=== PATIENT | male | born 1995 | race Caucasian/White ===

== ENCOUNTER 2019-12-07 14:20 | Emergency (ER) | payer BC ==
[2019-12-07] MEDS ORDERED: Amoxicillin 500 MG Cap PO ONE (14:42)
--- NOTE | 2019-12-07 14:47 | EDM.PDOC ---
ED HPI GENERAL MEDICAL PROBLEM - General Chief Complaint: ENT Problem Stated Complaint: SORE THROAT Time Seen by Provider: 12/07/19 14:35 - History of Present Illness INITIAL COMMENTS - FREE TEXT/NARRATIVE: 24-year-old male presents the emergency room with a sore throat. This started about 5 6 days ago. He was seen at the walk-in clinic on of this last week and had a negative rapid strep. But the patient was somewhat concerned about the sloppiness in which the sample was obtained. They discussed checking a mono but the results took too long to get back according to the provider as the patient recalls. Patient is not aware of any definitive fevers he does not have a thermometer at home however he has been sweaty and clammy at nights at times. Over the last 24 hours patient broke out in a rash worse over his right anterior thigh. But it is pretty diffuse over his abdomen and trunk and to a lesser degree is on his extremities. His past medical history is unremarkable except he thought he had an ear infection as a child. Throat Pain Score (Numeric/FACES): 4 - Related Data Allergies Allergy/AdvReac Type Severity Reaction Status Date / Time No Known Allergies Allergy Verified 12/07/19 14:32 Home Meds: Home Meds Amoxicillin 500 mg PO Q8H #29 capsule 12/07/19 [Rx] ED ROS ENT - Review of Systems Review Of Systems: See Below Constitutional: Reports: Diaphoresis HEENT: Reports: Throat Pain Respiratory: Reports: No Symptoms Cardiovascular: Reports: No Symptoms GI/Abdominal: Reports: No Symptoms Skin: Reports: Rash Neurological: Reports: No Symptoms ED EXAM, ENT - Physical Exam Exam: See Below Exam Limited By: No Limitations General Appearance: Alert, No Apparent Distress Eye Exam: Bilateral Eye: Normal Inspection Ears: Normal External Exam, Normal Canal, Hearing Grossly Normal, Other (Panic membrane has some scarring on it left is mildly bulging no other significant changes noted) Nose: Normal Inspection, Normal Mucousa, No Blood Mouth/Throat: Normal Gums, Normal Lips, Normal Teeth, Tonsillar Erythema, Tonsillar Exudates, Tonsillar Swelling, Other (Normal lips). No: Throat Swelling Head: Atraumatic, Normocephalic Neck: Normal Inspection, Supple, Non-Tender Respiratory/Chest: No Respiratory Distress, Lungs Clear, Normal Breath Sounds, No Accessory Muscle Use, Chest Non-Tender Cardiovascular: Normal Peripheral Pulses, Regular Rate, Rhythm, No Edema, No Murmur GI/Abdominal: Normal Bowel Sounds, Soft, Non-Tender Neurological: Alert, Oriented, Normal Cognition Skin: Rash (Patient is a scarlatina type rash diffuse lightly over his extremities pretty dense over his right anterior thigh no bony pain.) Course - Vital Signs Last Recorded V/S: Last Vital Signs Temp 37.9 C 12/07/19 14:33 Pulse 103 H 12/07/19 14:33 Resp 13 12/07/19 14:33 BP 130/87 12/07/19 14:33 Pulse Ox 100 12/07/19 14:33 - Orders/Labs/Meds Orders: Active Orders 24 hr Category Date Time Status CULTURE STREP A CONFIRMATION [RM] Stat Lab 12/07/19 14:40 Results Rapid Strep w/culture conf [STREP SCRN A RAPID W CULT Lab 12/07/19 14:40 Results CONF] [RM] Stat Labs: Laboratory Tests 12/07/19 Range/Units 15:27 Monoscreen Negative (NEGATIVE) Meds: Medications Discontinued Medications Generic Name Dose Route Start Last Admin Trade Name Flash PRN Reason Stop Dose Admin Amoxicillin 1,000 mg 12/07/19 14:42 12/07/19 16:17 Amoxil PO 12/07/19 14:43 1,000 mg ONETIME ONE Administration - Re-Assessments/Exams Free Text/Narrative Re-Assessment/Exam: 12/07/19 15:10 Patient has an exudative pharyngitis more consistent with strep and with a scarlatina type rash this is very concerning we will go ahead and recheck a rapid strep with culture confirmation and a Monospot. 12/07/19 16:28 Monospot and rapid strep are negative however with his symptoms going to go ahead and start antibiotics. Departure - Departure Time of Disposition: 16:28 Disposition: Home, Self-Care 01 Clinical Impression: Tonsillitis, Pharyngitis - Discharge Information Prescriptions: Amoxicillin 500 mg PO Q8H #29 capsule Referrals: Emily Villalpando MD [Primary Care Provider] - Forms: ED Department Discharge Additional Instructions: Return to the emergency room with any questions problems or worsening symptoms. Follow-up in the clinic at the end of this next week for recheck sooner if needed. Take the antibiotics as directed Sepsis Event Note - Focused Exam Vital Signs: Vital Signs Temp Pulse Resp BP Pulse Ox 12/07/19 14:33 37.9 C 103 H 13 130/87 100 Date Exam was Performed: 12/07/19 Time Exam was Performed: 16:28 - My Orders Last 24 Hours: My Active Orders 12/07/19 14:40 CULTURE STREP A CONFIRMATION [RM] Stat Rapid Strep w/culture conf [STREP SCRN A RAPID W CULT CONF] [] Stat - Assessment/Plan Last 24 Hours: My Active Orders 12/07/19 14:40 CULTURE STREP A CONFIRMATION [RM] Stat Rapid Strep w/culture conf [STREP SCRN A RAPID W CULT CONF] [] Stat
== END 2019-12-07 16:59 | disposition home or self-care (01) ==
LOC: JD.ED 14:20
DX: J03.90 Acute tonsillitis, unspecified (principal)
CPT/HCPCS: 36415; 86308; 87081; 87430; 99283; A9270